=== PATIENT | male | born 1970 | race Caucasian/White ===

== ENCOUNTER 2018-01-02 22:38 | Emergency (ER) | payer SELFPAY ==
[2018-01-02] MEDS ORDERED: SODIUM CHLORIDE 0.9% 1000ML 1,000 ML IVS ONE (22:47)
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
[2018-01-02] MEDS ORDERED: TETANUS,DIPHTHERIA,PERTUSSIS 1 EA SYG IM ONE (22:50)
[2018-01-02] MEDS ORDERED: MORPHINE SULFATE INJ 10 MG/ML VIAL IV ONE (23:21)
[2018-01-02] MEDS ORDERED: MORPHINE SULFATE INJ 10 MG/ML VIAL ONE (23:23)
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
[2018-01-02] MEDS ORDERED: ONDANSETRON INJ 4 MG/2 ML VIAL IV ONE (23:28)
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
[2018-01-03] MEDS ORDERED: MORPHINE SULFATE INJ 10 MG/ML VIAL IV ONE (00:56)
[2018-01-03] MEDS ORDERED: PROMETHAZINE HCL INJ 25 MG/ML VIAL IM ONE (00:56)
[2018-01-03 00:57] VITALS: O2SAT 96
[2018-01-03 01:47] VITALS: BP 117/72; TEMP 98
== END 2018-01-03 01:20 | disposition short-term general hospital (02) ==
LOC: ER 22:44
DX: S22.41XA Multiple fractures of ribs, right side, initial encounter for closed fracture (principal); S42.002A Fracture of unspecified part of left clavicle, initial encounter for closed fracture; V86.69XA Passenger of other special all-terrain or other off-road motor vehicle injured in nontraffic accident, initial encounter; Y92.9 Unspecified place or not applicable
CPT/HCPCS: 36415; 70450; 71260; 72125; 74177; 80048; 80320; 85025; J2270; J2550; J7030